=== PATIENT | female | born 1940 | race Caucasian/White ===

== ENCOUNTER 2024-07-01 08:37 | Outpatient (CLI) | payer MEDICARE, SELFPAY ==
--- NOTE | ~2024-07-01 | XR_ITS ---
EXAMINATION: XR abdomen/kub 1V DATE: 07/01/2024 09:16 INDICATION: Calcium kidney stone. TECHNIQUE: A supine view of the abdomen on 2 radiographs was obtained. COMPARISON: None. FINDINGS: There are no dilated loops of bowel. There is a moderate volume of stool in the colon. Ther e is a left internal ureteral stent in expected position. There is a phlebolith in left pelvis. There are 3 mm and 4 mm calcifications along distal left ureter, consistent with stones. IMPRESSION: 1. 3 mm and 4 mm stones in distal left ureter with left internal ureteral stent in expected position . Reviewed, dictated and finalized at location A. LITIES PLANT ENGINEER IMPRESSION: 1. 3 mm and 4 mm stones in distal left ureter with left internal ureteral sten t in expected position.
--- OUTSIDE RECORDS SUMMARY | 2024-07-01 08:51 | XMS_ITS ---
Author Organization Unknown Address [address] [place], [place] [id number] Phone Care Team Providers Care Truck Leasing Manager Name Role Phone RIDER MALINDA Park Attending Unavailable Immunization Immunization Date Status Additional Notes Code Code System pneumococcal polysaccharide PPV23 02/26/2007 Completed 33 CVX Pneumococcal conjugate PCV 13 03/06/2017 Completed 133 CVX Influenza, split virus, quadrivalent, PF 02/21/2015 Completed 150 CVX Influenza, split virus, quadrivalent, PF 03/06/2017 Completed 150 CVX Influenza, split virus, quadrivalent, PF 04/05/2018 Completed 150 CVX Results COMPREHENSIVE METABOLIC PANE L - Collect Date/Time: 11/12/2022 16:07 [facility] ID: [id number] - [id number] [address], [place], [address] LOINC: 94942-0 Test Value Unit Reference Range Code Code System Flag GLUCOSE 95 mg/dL L=74 H=106 2345-7 LOINC BUN 19 mg/dl L=7 H=18 3094-0 LOINC H CREATININE 0.74 mg/dl L=0.55 H=1.30 2160-0 LOINC SODIUM 142 mmol/L L=136 H=145 2951-2 LOINC POTASSIUM 4.0 mmol/L L=3.5 H=5.1 2823-3 LOINC TCO2 29.0 mmol/L L=21.0 H=32.0 2028-9 LOINC CHLORIDE 109 mmol/L L=98 H=107 2075-0 LOINC H CALCIUM 8.7 mg/dl L=8.5 H=10.1 49114-8 LOINC TBIL 0.60 mg/dl L=0.20 H=1.00 1975-2 LOINC ALK PHOS 80 U/L L=45 H=117 6768-6 LOINC TOTAL PROTEIN 6.1 g/dL L=6.4 H=8.2 2885-2 LOINC L ALBUMIN 3.6 g/dl L=3.4 H=5.0 20949-5 LOINC A/G RATIO 1.4 RATIO L=0.8 H=2.0 31314-1 LOINC SGOT (AST) 19 U/L L=15 H=37 1920-8 LOINC SGPT (ALT) 19 U/L L=13 H=61 61348-2 LOINC BUN/CRE RATIO 25.7 RATIO 3097-3 LOINC AGE 82 yrs GFR AfrAm 89 L=60 H=75 36832-2 LOINC H GFR Non-AfrAm 80 L=60 H=75 37651-5 LOINC H SEND TO PHARMACY? LIPID PROFILE [facility] [place] - Collect Date/Time: 11/12/2022 16:07 [facility] ID: [id number] - [id number] [address], [place], [address] LOINC: 10070-3 Test Value Unit Reference Range Code Code System Flag TRIGLYCERIDE 102 mg/dL L=30 H=150 2571-8 LOINC CHOLESTEROL 170 mg/dL L=0 H=200 2093-3 LOINC HDL CHOL 42 mg/dl L=40 H=59 2085-9 LOINC LDL 108 mg/dL L=5 H=100 97291-1 LOINC H LDL/HDL RATIO 3 09098-8 LOINC CHOL/HDL 4 Social History Type Status Start Date End Date Code Code Syst em Smoking History Never smoker (Never Smoked) 274724127 SNOMED CT Sex Female Hospital Discharge Instructions Should you have any questions prior to discharge, please contact a member of your healthcare team. If you have left the hospital and have any questions, please contact your primary care physician. Reason For Referral No Data Found Allergies and Adverse Reactions Allergy Substance Reaction Severity Start Date Concern Status Co de Code System No Known Drug Allergies Mild Active [id number] SNOMED-CT Plan of Treatment No Data Found Encounters Encounter Diagnosis Start Date Code Code Sys tem Mixed hyperlipidemia 11/12/2022 SNOMED- CT Personal Care Team Section Performer Name Performer Role Active Date Inactive Da te
--- OUTSIDE RECORDS SUMMARY | 2024-07-01 08:51 | XMS_ITS | Clinical Summary ---
Author Organization [facility] Address [address] [place] [id number] Care Team Providers Care Zinc Plating Machine Operator Name Role Phone Param, Gail Park MD Primary Care Provider [phone] Allergies No known active allergies Medications albuterol sulfate HFA 108 (90 Base) MCG/ACT inhaler Inhale 2 puffs into the lungs every 6 (six) hours as needed for Wheezing. 8 g 06/21/2021 Active ezetimibe (ZETIA) 10 MG tablet Take 1 tablet (10 mg total) by mouth daily. 11/12/2022 Active traMADol (ULTRAM) 50 MG tablet Take 1 tablet (50 mg total) by mouth 3 (three) times daily as needed for Pain. Active montelukast (SINGULAIR) 10 MG tablet Take 1 tablet (10 mg total) by mouth nightly at bedtime. 30 tablet 09/03/2023 Active Active Problems Problem Noted Date Diagnosed Date Asthma exacerbation ([facility]) 09/01/2023 COPD (chronic obstructive pu lmonary disease) ([facility]) 08/31/2023 Dyspnea 08/31/2023 Social History Tobacco Use Types Packs/Day Years Used Date Smoking Tobacco: Former Cigarettes Smokeless Tobacco: Never Tobacco Cessation:Counseling Given: Not Answered Alcohol Use Standard Drinks/Week Comments Never 0 (1 standard drink = 0.6 oz pur e alcohol) B1300 Health Literacy Answer Date Recor ded How often do you need to hav e someone help you when you read instructions, pamphlets, or other written material from your doctor or pharmacy? Never 08/31/2023 [facility] Utilities Answer Date Recorded In the past 12 months has th e electric, [employer], oil, or water [employer] threatened to shut off services in your home? No 08/31/2023 Humiliation, Afraid, Rape, and Kick questionnair e Answer Date Recorded Within the last year, have y ou been afraid of your partner or ex-partner? No 08/31/2023 Within the last year, have y ou been humiliated or emotionally abused in other ways by your partner or ex-partner? No Within the last year, have y ou been kicked, hit, slapped, or otherwise physically hurt by your partner or ex-partner? No 08/31/2023 Within the last year, have y ou been raped or forced to have any kind of sexual activity by your partner or ex-partner? No 08/31/2023 Social Connection and Isolat ion Panel [NHANES] Answer Date Recorded In a typical week, how many times do you talk on the phone with family, friends, or neighbors? More than three times a week 08/31/2023 How often do you get togethe r with friends or relatives? More than three times a week 08/31/2023 Attends Faith Services Not on file 08/30 Do you belong to any clubs o r organizations such as sabianist groups, unions, fraternal or athletic groups, or school groups? No 08/31/2023 How often do you attend meet ings of the clubs or organizations you belong to? More than 4 times per year 08/31/2023 Are you , , di vorced, , never , or living with a partner? 08/31/2023 AUDIT-C Answer Date Recorded Q1: How often do you have a drink containing alcohol? Never 08/31/2023 Q2: How many drinks containi ng alcohol do you have on a typical day when you are drinking? Patient does not drink Q3: How often do you have si x or more drinks on one occasion? Never 08/31/2023 Overall Financial Resource Strain (CARDIA) Answe r Date Recorded How hard is it for you to pa y for the very basics like food, housing, medical care, and heating? Not hard at all 08/31/2023 Exercise Vital Sign Answer Date Recorde d On average, how many days pe r week do you engage in moderate to strenuous exercise (like a brisk walk)? 3 days 08/31/2023 On average, how many minutes do you engage in exercise at this level? 30 min 08/31/2023 Hunger Vital Sign Answer Date Recorded Within the past 12 months, y ou worried that your food would run out before you got the money to buy more. Never true 08/31/19 24 Within the past 12 months, t he food you bought just didn't last and you didn't have money to get more. Never true 08/31/2023 PRAPARE - Transportation Answer Date Re corded In the past 12 months, has l ack of transportation kept you from medical appointments or from getting medications? No 08/16 In the past 12 months, has l ack of transportation kept you from meetings, work, or from getting things needed for daily living? No 08/31/2023 Housing Stability Vital Sign Answer Wilder e Recorded In the last 12 months, was t here a time when you were not able to pay the mortgage or rent on time? No 08/31/2023 In the past 12 months, how m any times have you moved where you were living? 1 08/31/2023 At any time in the past [address] [facility], were you homeless or living in a prison (including now)? 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 Gender Identity Not on file Sexual Orientation Not on file Last Filed Vital Signs Vital Sign Reading Time Taken Comments Blood Pressure 164/79 09/03/2023 7:57 AM CDT Pulse 86 09/03/2023 7:57 AM CDT Temperature 36.5 C (97.7 F) 09/03/2023 7:57 AM CDT Respiratory Rate 18 09/03/2023 7:57 AM CDT Oxygen Saturation 95% 09/03/2023 10: 31 AM CDT Inhaled Oxygen Concentration - - Weight 70.6 kg (155 lb 10.3 oz) 09/02/2023 5:00 AM CDT Height 165.1 cm (5' 5 ) 08/31/2023 1:24 PM CDT Body Mass Index 25.9 08/31/2023 1:24 PM CDT Plan of Treatment Health Maintenance Due Date Last Done Comments DTaP, Tdap and Td Vaccines ( 1 - Tdap) 10/18/1959 Zoster Vaccines (1 of 2) 1990 Annual Medicare Wellness Visit 2005 Dexa Scan (General) 2005 RSV Immunization or 60+ Years (1 - 1-dose 75+ series) 10/18/2015 COVID-19 Vaccine ( - 2023-2 5 season) 2024 Influenza Adult (#1) 2024 04/05/2018, 03/06/2017, 02/21/2015 Pneumococcal Vaccine: 65+ Years Completed 03/06/2017, 02/26/2007 Meningococcal B Vaccine Aged Out No l onger eligible based on patient's age to complete this topic Meningococcal Vaccine Aged Out No bill mari eligible based on patient's age to complete this topic RSV Immunizations Under 20 Months Aged Out No longer eligible b ased on patient's age to complete this topic Insurance MEDICARE AET MEDICARE AETNA Advance Directives * Full Code (Latest Code Status on File) Date Activated Date Inactivated Comments 08/31/2023 7:30 PM 09/03/2023 1:15 PM Care Teams Zinc Plating Machine Operator Relationship Specialty Start Date End Date Gail Virgen MD [address] [place] [address] PCP - General INTERNAL MEDICINE 08/31/23
--- OUTSIDE RECORDS SUMMARY | 2024-07-01 08:51 | XMS_ITS | Encounter Summary ---
Author Organization [facility] Address [address] [place] [address] Care Team Providers Care Playroom Attendant Name Role Phone None, Provider Primary Care Provider Gail Guillen MD Primary Care Provider [phone] Encounter Details Date Type Department Care Team (Late st Contact Info) Description 10/23/[address] 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 Gender Identity Not on file Sexual Orientation Not on file documented as of this encounter Plan of Treatment Not on file documented as of this encounter Visit Diagnoses Not on filedocumented in this encounter Additional Health Concerns Infection Onset Date Last Indicated Resolved Time COVID-19 Rule Out 06/21/2021 06/21/2021 06/21/2021 1:24 PM BASKETBALLS AND FOOTBALLS REVERSER COVID-19 Rule Out 08/31/2023 08/31/2023 08/31/2023 6:34 PM CDT Human Metapneumovirus 08/31/2023 08/31/20232023 12:32 AM CDT documented as of this encounter Care Teams Playroom Attendant Relationship Specialty Start Date End Date None, Provider, PCP - General 06/21/21 08/30/23 Gail Virgen MD [address] [place] [id number] PCP - General INTERNAL MEDICINE 08/31/23 documented as of this encounter
== END 2024-07-01 08:38 | disposition home or self-care (01) ==
DX: N20.1 Calculus of ureter (principal)
CPT/HCPCS: 74018